=== PATIENT | female | born 1990 | race Caucasian/White ===

== ENCOUNTER 2017-05-21 21:01 | Inpatient (IN) ==
[~2017-05-21 21:01] MED LIST: ROPIVACAINE 0.2% 2MG/ML INJ 40 MG, SUFentanil 50 MCG in NS 100 ML INFIL ONE
--- OUTSIDE RECORDS SUMMARY | 2017-05-21 21:05 | External Medical Summary | Referral Summary ---
:1990 Author Organization [facility] [address] [place] [address] Care Team Providers Name Role Phone Kat Hernadez Primary Care Physician Encounter VC Date(s): 06/14/16 - 06/14/16 [facility] [address] [place] [address] [place] Discharge Diagnosis: Skin abscess Discharge Diagnosis: Skin abscess Discharge Disposition: 01-Home or Self Care Attending Physician: Yunier Klein MD Admitting Physician: Yunier Klein MD Vital Signs Most recent to oldest [Reference Range]: 1 Peripheral Pulse Rate [60-100 bpm] 109 bpm *HI* (06/14/16 1:59 PM) Respiratory Rate [14-20 br/min] 18 br/min (06/14/16 1:59 PM) Blood Pressure [90-140/60-90 mmHg] 124/64 mmHg (06/14/16 1:59 PM) SpO2 98 % (06/14/16 1:59 PM) Problem List Condition Effective Dates Status Health Status Informant Obesity(Confirmed) Active patient Allergies, Adverse Reactions, Alerts No Known Allergies Medications doxycycline hyclate 100 mg oral capsule 100 mg 1 caps, Oral, BID, # 20 caps, 0 Refill(s), Pharmacy: [id number], 1 caps Oral BID Start Date: 06/14/16 Stop Date: 06/23/16 Status: Orderedmupirocin 2% nasal ointment 1 vidal, Nasal, BID, in each nostril, X 5 days, # 1 g, 0 Refill(s), Pharmacy: [id number] Start Date: 06/14/16 Stop Date: 06/19/16 Status: Ordered Results No data available for this section Immunizations No data available for this section Procedures Procedure Date Related Diagnosis Body Site Incision and drainage of abscess (eg, carbuncle, 06/14/16 suppurative hidradenitis, cutaneous or subcutaneous abscess, cyst, furuncle, or paronychia); simple or single Social History Social History Type Response Smoking Status Never smoker Assessment and Plan Extracted from: Title: Acute OV-Abscess Author: Yunier Klein MD Date: 06/14/16 Impression and Plan Diagnosis Skin abscess ([id number] L02.91, Discharge, Medical). Orders Orders (Selected) Prescriptions Prescribed doxycycline hyclate 100 mg oral capsule: 100 mg=1 caps, Oral, BID, 20 caps, 0 Refill(s) mupirocin 2% nasal ointment: 1 vidal, Nasal, BID, for 5 days, in each nostril, 1 g, 0 Refill(s).
--- OUTSIDE RECORDS SUMMARY | 2017-05-21 21:05 | External Medical Summary ---
:1989 Author Organization [employer] Care Team Providers Name Role Phone Jazlyn Soto Provider Role Unavailable Allergies No Known Allergies Problems Problem Type Condition Code Onset Dates Condition Status Assessment Major depressive disorder, F33.1 Active recurrent, moderate Assessment Adjustment disorder with anxiety F43.22 Active Problem Esophageal reflux 530.81 Active Medications Medication Code Code Instructions Start End Date Status Dosage System Date Citalopram [facility] 76210-34 20 MG Orally June 12, tablet Hydrobromide 41-01 Once a day 2015 Ibuprofen NDC 75652-82 200 MG Orally 1 tablet 74-71 every 6 hrs as needed Results No Known Results Summary Purpose [facility] [facility] [employer] Submission
--- OUTSIDE RECORDS SUMMARY | 2017-05-21 21:05 | External Medical Summary | Continuity of Care Document ---
:1989 Author Organization [facility] Address [address] [place] [id number] Phone Allergies, Adverse Reactions, Alerts Substance Reaction Severity Status No Known Drug Allergies Unknown Active Medications Medication Instructions Dosage Effective Dates Status Comments (start - stop) VITAMINS take 1 tablet by - Active (unknown strength) oral route every day levothyroxine 75 mcg take 1 tablet by 75 MCG - Active called to WM tablet oral route every Problems Condition Effective Dates (start - stop) Clinical Status Endo, nutritional and metab diseases - comp preg, third tri Encntr for suprvsn of normal first - preg, third trimester 28 weeks gestation of - Encntr for suprvsn of normal first - preg, first trimester Less than 8 weeks gestation of - Oth related conditions, - third trimester Encntr for suprvsn of normal first - preg, third trimester 30 weeks gestation of - Endo, nutritional and metab diseases - comp preg, second tri Encntr for suprvsn of normal first - preg, second trimester 25 weeks gestation of - Encntr for suprvsn of normal first - preg, first trimester 11 weeks gestation of - Encntr for suprvsn of normal first - preg, second trimester 19 weeks gestation of - Encntr for suprvsn of normal first - preg, second trimester 19 weeks gestation of - Encntr for suprvsn of normal first - preg, second trimester 15 weeks gestation of - Encntr for suprvsn of normal first - preg, second trimester 23 weeks gestation of - Encntr for suprvsn of normal , unsp, unsp trimester Irregular Bleeding Active Procedures Procedure Date OB Visit No Charge Results Test Name Date and Time Measure Units Reference Range Abnormal Flag Comments Unknown Advance Directives Directive Yes / No Effective Date File Name Unknown Encounters Encounter Practice Location Reason(s) Diagnoses Date Provider Care Description For Visit Team Members aBrbra Hall Oth Mar- Lc In [facility] related [facility], conditions, [address], third [place], [facility] Center , for suprvsn of Anupam Villalpando normal first 120, tel:[phone] preg, third [place], [address] [email or web address] [place], weeks gestation [id number] of , [place]. tel: [phone] Barbra Rivera, Lazarus-0 Lc In Womens nutritional and [facility], metab diseases 8 [address], comp preg, third [place], triEncntr for Center , suprvsn of Anupam Villalpando normal first 120, tel:[phone] preg, third [place], [address] [email or web address] [place], weeks gestation [id number] of , [place]. tel: [phone] Barbra Rivera, Jan- Lc In Women nutritional and [facility], metab diseases 7 [address], comp preg, [place], second triEncntr Center , for suprvsn of Anupam Villalpando normal first 120, tel:[phone] preg, second [place], [address] [email or web address] [place], weeks gestation [id number] of , [place]. tel: [phone] Barbra Hall Encntr for Dec-0 Lc In Womens suprvsn of 201 [facility], normal first 7 700 [address], preg, second Medical [place], [id number] Center [id number], weeks gestation Anupam Villalpando [place] of 120, tel:+[phone] [place], [address] [place], [id number] , [place]. tel: [phone] [facility] En[facility] for Nov-0 Lc In Womens suprvsn of 6-201 [facility], normal first 7 700 [address], preg, [place], [id number] Center [id number], weeks gestation Anupam Villalpando [place] of 120, tel:+[phone] [place], [address] [place], [id number] , [place]. tel: [phone] [facility] Encntr for Nov-0 Lc In Womens Ultrasound suprvsn of 6-201 [facility], normal first 7 700 [address], preg, [place], Center [id number], weeks gestation Anupam Villalpando [place] of 120, tel:[phone] [place], [address] [place], [id number] , [place]. tel: [phone] [facility] Encntr for Oct-0 Lc In Womens suprvsn of 9-201 [facility], normal first 7 700 [address], preg, [place], [id number] Center [id number], weeks gestation Anupam Villalpando [place] of 120, tel:+[phone] [place], [address] [place], [id number] , [place]. tel: [phone] [facility] Encntr for Sep-1 Lc In Womens suprvsn of 1-201 [facility], normal first 7 700 [address], preg, [place], [place], Center [id number], weeks gestation Anupam Villalpando [place] of 120, tel:[phone] [place], [address] [place], [id number] , [place]. tel: [phone] [facility] Encntr for Aug-1 Lc In Womens suprvsn of 4-201 [facility], normal first 7 700 [address], preg, [place], [place], trimesterLess Center [id number], than 8 weeks Anupam Villalpando [place] gestation of 120, tel:+[phone] Rafael [address], [id number] , [place]. tel: [phone] Barbra Hall Aug-0 Lc In Womens 2-201 [facility], 7 700 [address], [place], Center [id number], , [facility] 120, tel:+[phone], [id number] , [place]. tel: [phone] Barbra Hall Encntr for Aug-0 Lc In Womens suprvsn of 1-201 [facility], normal 7 700 [address], , unsp, [place], unsp trimester Center [id number], , [facility] 120, tel:+[phone], [id number] , [place]. tel: [phone] Barbra Hall Aug-0 Lc In Womens 1-201 [facility], 7 700 [address], [place], [place] [id number], , [facility] 120, tel:+[phone], [id number] , [place]. tel: [phone] Family History Family Member Diagnosis Age At Onset No family history of Hypertension No family history of Venous Thrombosis No family history of Breast Cancer No family history of Thyroid Disorder No family history of Ovarian Cancer No family history of Epilepsy No family history of Osteoporosis No family history of Kidney Disease No family history of Colon Cancer No family history of Pulmonary Embolism No family history of Cardiovascular Disease Mother Diabetes No family history of Lung Disease No family history of Stroke No family history of Uterine Cancer Immunizations Vaccine Date Status Comments Unknown Payers Payer name Insurance type Covered constitution party ID Authorization(s) [employer] [place] [employer] - Medicaid [place] [id number] Social History Type Description Quantity Date Captured Alcohol Use Details No Caffeine Use Details No Tobacco Use Status Never smoked tobacco Smoking Status Never smoker Vital Signs Date / Height Weight BMI Pulse Blood Temperature Respiratory Body Head BMI Time: Rate Pressure Rate Surface Circumference percentile Area Unknown Chief Complaint And Reason For Visit Unknown Chief Complaint And Reason For Visit Reason For Referral Reason For Referral Unknown Plan Of Care Date Type Action Status Goal Lifestyle education regarding completed diet Appointment Stephanie Valentine BOOKED Appointment Stephanie Valentine BOOKED Appointment Stephanie Valentine BOOKED Future Order: Radiology Order Complete OB Ultrasound > 14 Ordered Weeks ([id number]) Date Type Problem Goal Intervention Status Start Date Unknown. History Of Present Illness Encounter Date Complaint History Of Present Illness This patient has no known history of present illness Functional Status Encounter Date Functional Assessment Cognitive Assessment Unknown Medications Administered Medication Instructions Dosage Effective Dates (start - stop) Status Comments Drug Treatment Unknown Instructions Date Instruction Additional Information HIV and other routine tests risk factors identified by history anticipated course of care nutrition and weight gain counseling, special diet toxoplasmosis precautions (cats / raw meat) sexual activity exercise indications for ultrasound influenza vaccine environmental / work hazards travel use of any medications (including supplements, vitamins, herbs, OTC drugs) domestic violence seat belt use childbirth classes / hospital facilities hospital registration genetic testing Zika virus assessment & precautions new ob handbook [facility] Docs Giving encouragement to exercise Related to Body mass index 31.0-31.9 Lifestyle education regarding diet Related to Body mass index 31.0-31.9
--- OUTSIDE RECORDS SUMMARY | 2017-05-21 21:05 | External Medical Summary ---
:1990 Author Organization eClinicalWorks Care Team Providers Name Role Phone Elsy Kenny Provider Role Unavailable Allergies, Adverse Reactions, Alerts Substance Reaction Event Type N.K.D.A. Info Not Available Non Drug Allergy Problems Problem Type Condition Code Onset Dates Condition Status Assessment Major depressive disorder, F33.0 Active recurrent, mild Assessment Dysmenorrhea, unspecified N94.6 Active Problem Esophageal reflux 530.81 Active Medications Medication Code Code Instructions Start End Date Status Dosage System Date Ibuprofen NDC 66078-18 200 MG Orally 1 tablet 74-71 every 6 hrs as needed Citalopram NDC 80763-13 20 MG Orally June 12, 1 tablet Hydrobromide 41-01 Once a day 2015 Procedures Procedure Coding System Code Date OFFICE VISIT, EST-LOW COMPLEXITY (15 MIN.) CPT-4 68086 June 13, 2015 Vital Signs Date/Time: June 13, 2015 Cardiac Monitoring Heart Rate 70 /min Height 60 in Weight 192.12 lbs Temperature 99.1 F Respiratory Rate 16 /min Blood Pressure Diastolic 77 mm Hg Blood Pressure Systolic 140 mm Hg Results No Known Results Summary Purpose eClinicalWorks Submission
--- OUTSIDE RECORDS SUMMARY | 2017-05-21 21:05 | External Medical Summary ---
:1989 Author Organization [facility] Care Team Providers Name Role Phone Kat Hernadez Provider Role Unavailable Allergies No Known Allergies Problems Problem Type Condition Code Onset Dates Condition Status Problem Esophageal reflux 530.81 Active Medications No Known Medications Results No Known Results Summary Purpose [facility] Submission
--- OUTSIDE RECORDS SUMMARY | 2017-05-21 21:05 | External Medical Summary ---
:1989 Author Organization eClinicalWorks Care Team Providers Name Role Jazlyn Nowak Provider Role Unavailable Allergies No Known Allergies Problems Problem Type Condition Code Onset Dates Condition Status Assessment Major depressive disorder, F33.1 Active recurrent, moderate Assessment Encounter for consultation Z71.9 Active Problem Esophageal reflux 530.81 Active Medications Medication Code Code Instructions Start End Status Dosage System Date Date Selenium [facility] 45489-01 1 % Externally Oct 23 application Sulfide 95-53 2016 to affected area Results No Known Results Summary Purpose eClinicalWorks Submission
--- OUTSIDE RECORDS SUMMARY | 2017-05-21 21:05 | External Medical Summary | Continuity of Care Document ---
:1989 Author Organization [facility] Address [address] [place], [place] [id number] Phone Allergies, Adverse Reactions, Alerts Substance Reaction [...] Effective Dates (start - stop) Clinical Status Encntr for suprvsn of normal first - preg, second trimester 19 weeks gestation of - Encntr for suprvsn of normal first - preg, first trimester Less than 8 weeks gestation of - Encntr for suprvsn [...] trimester Irregular Bleeding Active Procedures Procedure Date Ultrasound exam of preg uterus, complete Results Test Name Date and Time Measure Units Reference Range Abnormal Flag Comments Unknown Advance Directives Directive Yes / No Effective Date File Name Unknown Encounters Encounter Practice Location Reason(s) Diagnoses Date Provider Care Description For Visit Team Members [facility] Encntr for Nov- Lc In [employer] suprvsn of 6-201 Carol. [facility], normal first 7 [address], preg, second Medical [place], [place], [id number] Center [id number], weeks gestation Anupam Villalpando [place] of 120, tel:+[phone] [place], [address] [place], [id number] , [place]. tel: [phone] [facility] Encntr for Nov-0 Lc In Womens Ultrasound suprvsn of 6-201 [facility], normal first 7 700 [address], preg, [place], [place], [id number] Center [id number], weeks gestation Anupam Villalpando US of 120, tel:+[phone] [place], [address] [place], [id number] , [place]. tel: [phone] [facility] Encntr for Oct-0 Lc In Womens suprvsn of 9-201 [facility], normal first 7 700 [address], preg, [place], [place], [email or web address] Center [id number], weeks gestation Anupam Villalpando US of 120, tel:+[phone] [place] [address], [id number] , [place]. tel: [phone] [facility] Encntr for Sep-1 Lc In Womens suprvsn of 1-201 [facility], normal first 7 700 [address], preg, [place], [place], [id number] Center [id number], weeks gestation Anupam Villalpando US of 120, tel:+[phone] [place] [address] [place], [id number] , [place]. tel: [phone] [facility] Encntr for Aug-1 Lc In Womens suprvsn of 4-201 [facility], normal first 7 700 [address], preg, [place], [place], trimesterLess Center [id number], than 8 weeks Anupam Villalpando [place] gestation of 120, tel:+[phone] [place] [address] [place], [id number] , [place]. tel: [phone] [facility] Aug-0 Lc In Womens 2-201 [facility], 7 700 [address], [place], [place], [place] [id number], Anupam Villalpando [place] 120, tel:+[phone] [place] [address] [place], [id number] , [place]. tel: [phone] Barbra Hall Encntr for Oct-0 Lc In Womens suprvsn of [facility], normal 7 700 [address], , Medical [place], [place], unsp, unsp Center [id number], trimester Dr [facility] 120, tel:+[phone] [place] [address] [place], [id number] , [place]. tel: [phone] Barbra Hall Oct-0 Lc In Womens [facility], 7 700 [address], [place], [place], Center [id number], Dr [facility] 120, tel:+[phone] [place] [address] [place], [id number] , [place]. tel: [phone] Family History Family Member Diagnosis Age At [...] Unknown Payers Payer name Insurance type Covered democrat ID Authorization(s) [employer] [place] [employer] - Medicaid [place] [id number] Social History Type Description Quantity Date Captured Unknown Vital Signs Date / Height Weight BMI Pulse Blood Temperature Respiratory Body Head BMI Time: Rate Pressure Rate Surface Circumference percentile Area Unknown Chief Complaint And Reason For Visit Unknown Chief Complaint And Reason For Visit Reason For Referral Reason For Referral Unknown Plan Of Care Date Type Action Status Goal Lifestyle education regarding completed diet Appointment Stephanie Valentine BOOKED Future Order: Radiology Order Complete OB Ultrasound > 14 Ordered Weeks ([id number]) Date Type Problem Goal Intervention Status Start [...]
--- OUTSIDE RECORDS SUMMARY | 2017-05-21 21:06 | External Medical Summary ---
:1990 Author Organization eClinicalWorks Care Team Providers Name Role Phone Fiona Worthington Provider Role Unavailable Allergies No Known Allergies Problems Problem Type Condition ICD-9 Code Onset Dates Condition Status Problem Abnormal EKG 794.31 Active Problem PVC's (premature ventricular 427.69 Active contractions) Medications No Known Medications Results No Known Results Summary Purpose eClinicalWorks Submission
--- OUTSIDE RECORDS SUMMARY | 2017-05-21 21:06 | External Medical Summary | Continuity of Care Document ---
:1990 Author Organization [facility] Address [address] [place], [place] [id number] Phone Allergies, Adverse Reactions, Alerts Substance Reaction [...] Visit Team Members [facility] Encntr for Jan- Lc In [facility] suprvsn of 6-201 Carol. [facility], normal first 7 700 [address], preg, second Medical [place], [place], [id number] Center [id number], weeks gestation Anupam Villalpando [place] of 120, tel:+[phone] Rafael, [address] [place], [id number] , [place]. tel: [phone] [facility] Encntr for Nov-0 Lc In Womens Ultrasound suprvsn of 6-201 [facility], normal first 7 700 [address], preg, [place], [place], ailumlgqy74 Center [id number], weeks gestation Anupam Villalpando US of 120, tel:+[phone] Rafael, [address] [place], [id number] , [place]. tel: [phone] [facility] Encntr for Oct-0 Lc In Womens suprvsn of 9-201 [facility], normal first 7 700 [address], preg, [place], [place], [id number] Center [id number], weeks gestation Anupam Villalpando US of 120, tel:+[phone] Rafael, [address] [place], [id number] , [place]. tel: [phone] [facility] Encntr for Sep-1 Lc In Womens suprvsn of 1-201 [facility], normal first 7 700 [address], preg, [place], [place], uqvbsqllx38 Center [id number], weeks gestation Anupam Villalpando US of 120, tel:+15636 [place], [address] [place], [id number] , [place]. tel: [phone] [facility] Encntr for Aug-1 Lc In Womens suprvsn of 4-201 [facility], normal first 7 700 [address], preg, [place], [place], trimesterLess Center [id number], than 8 weeks Anupam Villalpando [place] gestation of 120, tel:+[phone] Rafael, [address] [place], [id number] , [place]. tel: [phone] [facility] Aug-0 Lc In Womens 2-201 [facility], 7 700 [address], [place], [place], [place] [id number], Anupam Villalpando [place] 120, tel:+[phone] Rafael [address], [id number] , [place]. tel: [phone] Barbra Hall Encntr for Oct- Lc In Womens suprvsn of [facility], normal 7 700 [address], , Medical [place], [place], unsp, unsp Center [id number], trimester , [facility] 120, tel:+[phone] Rafael, [address] [place], [id number] , [place]. tel: [phone] Barbra Hall Oct-0 Lc In Womens [facility], 7 700 [address], [place], [place], Center [id number], , [facility] 120, tel:+[phone] Rafael [address] [place], [id number] , [place]. tel: [phone] Family History Family Member Diagnosis Age At [...] Authorization(s) [employer] - Medicaid [place] [id number] Social History Type Description Quantity Date Captured Alcohol Use Details No Caffeine Use Details Unknown Tobacco Use Status Unknown Smoking Status Never smoker Vital Signs Date / Height Weight BMI Pulse Blood Temperature Respiratory Body Head BMI Time: Rate Pressure Rate Surface Circumference percentile Area 179.50 33.9 lbs 1 mm[Hg] 1:20 kg/m PM eter (2) Chief Complaint And Reason For Visit Unknown Chief Complaint And Reason For Visit Reason For Referral Reason For Referral Unknown Plan Of Care Date Type Action Status Goal Lifestyle education regarding completed diet Appointment Stephanie Valentine BOOKED Future Order: Radiology Order Complete OB Ultrasound > 14 Ordered Weeks ([id number]) Date Type Problem Goal Intervention Status Start [...]
--- OUTSIDE RECORDS SUMMARY | 2017-05-21 21:06 | External Medical Summary ---
:1990 Author Organization eClinicalWorks Care Team Providers Name Role Phone Kat Hernadez Provider Role Unavailable Allergies, Adverse Reactions, Alerts Substance Reaction Event Type N.K.D.A. Info Not Available Non Drug Allergy Problems Problem Type Condition Code Onset Dates Condition Status Assessment Tinea versicolor B36.0 Active Assessment Cough R05 Active Problem Esophageal reflux 530.81 Active Medications Medication Code Code Instructions Start End Status Dosage System Date Date Selenium [facility] 10898-68 1 % Externally Oct 23 application Sulfide 95-53 2015 to affected area Procedures Procedure Coding System Code Date OFFICE VISIT, EST-LOW COMPLEXITY (15 MIN.) CPT-4 38436 Oct 24, 2015 Vital Signs Date/Time: Oct 24, 2015 Temperature 99.7 F Height 60 in Weight 195.8 lbs Blood Pressure Diastolic 60 mm Hg Blood Pressure Systolic 112 mm Hg Cardiac Monitoring Heart Rate 63 /min BMI 38.24 Index Oximetry 98 % Results No Known Results Summary Purpose eClinicalWorks Submission
[2017-05-21] MEDS ORDERED: MAG-AL + SIM ORAL LIQUID 30ml PO PRN (21:33)
[2017-05-21] MEDS ORDERED: LIDOCAINE 1% (10mg/ml) 2mL INJ PF SDV ID PRN (21:33)
[2017-05-21] MEDS ORDERED: ACETAMINOPHEN 500 MG TABLET PO PRN (21:33)
[2017-05-21] MEDS ORDERED: CALCIUM CARBONATE Chewable 500mg TABLET PO PRN (21:33)
[2017-05-21] MEDS ORDERED: CARBOPROST 250 MCG/ML INJECTION IM PRN (21:33)
[2017-05-21] MEDS ORDERED: METHYLERGONOVINE 0.2 MG/ML INJECTION IM PRN (21:33)
[2017-05-21] MEDS: LR 1,000 ML IV PRN (22:00)
[2017-05-21 22:23] VITALS: BMI 39.8
[2017-05-22] MEDS ORDERED: NALBUPHINE 10 MG/ML INJECTION IVP PRN (03:16)
[2017-05-22] MEDS ORDERED: ONDANSETRON 4 MG/2 ML INJECTION IVP PRN (07:20)
[2017-05-22] MEDS ORDERED: DiphenhydrAMINE 50 MG/ML INJECTION IVP PRN (07:20)
[2017-05-22] MEDS ORDERED: NALOXONE 0.4 MG/ML INJECTION IVP PRN (07:20)
[2017-05-22] MEDS ORDERED: ROPIVACAINE 1% 10MG/ML INJ 200 MG, SUFentanil 50 MCG in NS 100 ML EPI PRN (07:20)
--- NOTE | 2017-05-22 07:20 | Anesthesia Preoperative Report ---
Anesthesia Epidural/Spinal Rec - Date and Time Date: 05/22/17 Procedure: Labor Epidural Plan: Epidural - Vital Signs /Para: P:0 - Medictaions & Allergies Inpatient Medications: Current Medications Acetaminophen (Tylenol) 500 - 1,000 mg PO Q4H PRN PRN Reason: Pain Al Hydroxide/Mg Hydroxide (Maalox Plus) 30 ml PO Q3H PRN PRN Reason: Indigestion Calcium Carbonate (Tums) 500 - 1,000 mg PO Q2H PRN PRN Reason: Indigestion Carboprost Tromethamine (Hemabate) 250 mcg IM O PRN PRN Reason: .Downtime Lactated Ringer's (Lactated Ringers) 1,000 mls @ 999 mls/hr IV .Q1H1M PRN Last Admin: 05/21/17 22:00 Dose: 125 mls/hr Lidocaine HCl (Xylocaine-Mpf 1% Vial) 0.2 mg ID O PRN PRN Reason: IV Start Methylergonovine Maleate (Methergine) 0.2 mg IM O PRN Misoprostol (Cytotec) 800 mcg IA ONCE PRN Nalbuphine HCl (Nubain) 5 - 10 mg IVP Q1H PRN Last Admin: 05/22/17 03:34 Dose: 5 mg Allergies/Adverse Reactions: Allergies Allergy/AdvReac Type Severity Reaction Status Date / Time No Known Allergies Allergy Unverified 12/20/15 23:11 - Home Medications Home Medications: Home Medications Medication Instructions Recorded Confirmed Type NO ROUTINE MEDS #0 12/20/15 History Levothyroxine Tab 1 tab DAILY 05/19/17 05/21/17 History Vitamins 1 tab DAILY 05/19/17 05/21/17 History Triamcinolone 0.1% Cream 15 G 1 applicatio TOP BID 05/21/17 05/21/17 History [Kenalog] - Medical History Cardiovascular: Reports: Other (PVCs- asymptomatic) DENIES: Angina Gastrointestional: Reports: Gastroesophageal Reflux Disease Renal/Endocrine: Reports: Thyroid Disease (takes levothyroxine) Other History: Reports: Now DENIES: Anesthesia Reactions - Surgical History Anesthesia Reactions: None Hx Family Anesthesia Reaction: No History of Motion Sickness: No - Social History Smoking Status: Never smoker Substance Use Type: does not use - Pertinent Findings Lab Data: CBC and BMP 05/21/17 21:49 - Physical Exam Respiratory Exam: lungs clear, bilateral breath sounds equal Cardiovascular Exam: regular rate and rhythm - Airway Assessment Mallampati Score: II TMD: 3 Fingerbreadths Neck Extension: good Overall Assessment: may be difficult mask vent, may be difficult intubation - ASA ASA Score: 2 - Discussion Discussion: Discussed risks/options/alternatives of anesthesia and questions answered. Patient consents. Nursing pain assessment noted. Anesthesia Discussion: spouse Attestation Statement: Prior to the delivery of any anesthetic medication, I examined the patient, developed the plan, obtained the patient's consent and discussed the risk and benefits of the procedure with the patient/guardian.
[2017-05-22] MEDS ORDERED: OXYTOCIN DRIP 30 UNIT/500 ML ML IV PRN (08:00)
[2017-05-22] MEDS ORDERED: D5LR 1,000 ML IV PRN (08:00)
[2017-05-22] MEDS: LR 1,000 ML IV PRN (12:39)
[2017-05-22] MEDS ORDERED: CEFAZOLIN PREMIX (MC ONLY) 2 GM/50 ML BAG IV SCH (13:00)
[2017-05-22] MEDS ORDERED: LIDOCAINE 2%/EPI 1:200,000 20ml SDV PF ONE (14:48)
[2017-05-22] MEDS ORDERED: MORPHINE SULFATE PF 5mg/10ml INJ (Duramorph) ONE (14:49)
[2017-05-22] MEDS ORDERED: CITRIC ACID/SODIUM CITRATE 30ml PO ONE (14:59)
[2017-05-22] MEDS ORDERED: FAMOTIDINE PB 20 MG/50 ML BAG IV ONE (14:59)
[2017-05-22] MEDS ORDERED: TRANEXAMIC ACID 1,000 MG/10 ML VIAL IV ONE (15:01)
[2017-05-22] MEDS ORDERED: FentaNYL 250 MCG/5 ML INJECTION ONE (15:28)
[2017-05-22] MEDS ORDERED: MIDAZOLAM 2mg/2ml INJECTION ONE (15:44)
[2017-05-22] MEDS ORDERED: KETAMINE 500 MG/10 ML INJECTION ONE (15:45)
[2017-05-22] MEDS ORDERED: PHENYLEPHRINE INJ 10 MG/ML VIAL IV ONE (15:53)
[2017-05-22] MEDS ORDERED: SALINE FLUSH 10ml SYRINGE ONE (15:53)
[2017-05-22] MEDS ORDERED: HYDROCORTISONE 2.5% CREAM 30gm RECTALLY PRN (16:35)
[2017-05-22] MEDS ORDERED: METOCLOPRAMIDE 10mg/2ml INJECTION IVP PRN (16:35)
[2017-05-22] MEDS ORDERED: OXYTOCIN DRIP 30 UNIT/500 ML ML IV SCH (16:35)
[2017-05-22] MEDS ORDERED: ACETAMINOPHEN 500 MG TABLET PO PRN (16:35)
[2017-05-22] MEDS ORDERED: CALCIUM CARBONATE Chewable 500mg TABLET PO PRN (16:35)
[2017-05-22] MEDS ORDERED: SIMETHICONE 80 MG CHEWABLE TABLET PO PRN (16:35)
[2017-05-22] MEDS ORDERED: DiphenhydrAMINE 25 MG CAPSULE PO PRN (16:35)
[2017-05-22] MEDS: D5LR 1,000 ML IV SCH (16:39)
[2017-05-22] MEDS ORDERED: ACETAMINOPHEN IV 1,000 MG/100 ML VIAL IV ONE (16:51)
[2017-05-22] MEDS: SIMETHICONE 80 MG CHEWABLE TABLET PO SCH (19:41)
[2017-05-22] MEDS: IBUPROFEN 800 MG TABLET PO PRN (20:04)
[2017-05-22] MEDS: CEFAZOLIN PREMIX (MC ONLY) 2 GM/50 ML BAG IV SCH (20:05)
--- NOTE | 2017-05-22 20:31 | Anesthesia Postoperative Note ---
- Date and Time Date: 05/22/17 Time: 20:25 - Status Patient Participated in Evaluation: Patient Participated in Person Respiratory Function: Airway Patent, Regular Respirations Cardiovascular Function: Regular Pulse Mental Status: Alert and Oriented Pain Intensity: 4 Hydration: Taking PO Fluids Complications During Recover: None Apparent Post Anesthesia Care Notes: moves lower extremeties - Follow-Up Instructions Instructions: Per Surgeon
--- NOTE | 2017-05-22 21:54 | Operative Note ---
DATE OF SURGERY 05/22/2017 PREOPERATIVE DIAGNOSES 1. Term . 2. Prolonged premature rupture of membranes. 3. Arrest of dilatation. 4. Prolonged tachycardia. 5. Chorioamnionitis. POSTOPERATIVE DIAGNOSES 1. Term - delivered. 2. Prolonged premature rupture of membranes. 3. Arrest of dilatation. 4. Prolonged tachycardia. 5. Chorioamnionitis. PROCEDURE Primary low transverse section. SURGEON Carol Platt MD [employer] INST[employer]ER Gurvinder Be, Coil Winding Supervisor ANESTHESIA Continuous epidural. STONE OPERATOR Derek Angeles CRNA EBL one 1200 ml 1200 mL. DESCRIPTION OF PROCEDURE Ms. Vlaentine was brought to the OR and placed on the OR table in supine position with left lateral displacement. Her epidural analgesia was brought up to adequate surgical levels. The abdomen was prepped and draped in the usual sterile fashion. A Pfannenstiel skin incision was made with a sharp knife. This was carried down to fascia. Fascia was incised transversely. Fascia was tented up, then bluntly and sharply dissected free of rectus muscles. Rectus muscles were bluntly divided. The peritoneum was tented up and sharply entered. The bladder blade was inserted. The bladder was noted to be well below our area of operation. A low transverse uterine incision was made with a sharp knife. There was thin meconium-stained fluid. Baby was delivered in the vertex OP presentation. There was a loose shoulder cord x 1 that was delivered through. Baby was bulb suctioned as soon as the head was delivered and then further bulb suctioned after delivery in total. The cord was doubly clamped and cut and the baby is given to Dr. Castorena and her team for care. This is a liveborn female with Apgars of 8/9. She weighed 6 pounds, 9 ounces. The placenta was then manually removed intact. It had a normal configuration and normal-appearing three-vessel cord. It was subsequently cultured and sent to Pathology for evaluation. The uterus was exteriorized and we swept the cavity clear of membranes. The myometrial incision was then reapproximated with a running locking 0-Monocryl. There had been extensions on the right and the left , neither of them very far but both required reenforcing with [id number] extra suture of 0-Monocryl for hemostasis. We inspected very carefully for hemostasis - this was under good control. Uterus, tubes and ovaries were noted to be grossly normal and were returned to the abdominal cavity. We then inspected again for hemostasis. There was some question about whether it was remaining under control on the left so we again exteriorized the uterus. Visibility was fairly difficult because of mother's body habitus but after exteriorization we determined that hemostasis really was under good control. We returned the uterus to the abdominal cavity and continued our closure. Peritoneum was reapproximated with a running nonlocking 2-0 Vicryl. Fascia was then reapproximated with a running nonlocking 0-PDS double suture. We irrigated copiously with sterile normal saline. Skin edges were reapproximated with a subcuticular style 3-0 undyed Vicryl. Then the wound was dressed with Dermabond glue and a Prevena dressing. Total blood loss was approximately 1200 mL. At the time of this dictation mother and baby are doing well. [facility]
[2017-05-23] MEDS: SIMETHICONE 80 MG CHEWABLE TABLET PO SCH ×4 (02:28→21:36)
[2017-05-23] MEDS: CEFAZOLIN PREMIX (MC ONLY) 2 GM/50 ML BAG IV SCH ×3 (03:15→16:28)
[2017-05-23] MEDS: HYDROCODONE/APAP 5mg/325mg TABLET PO PRN ×4 (08:33→21:36)
[2017-05-23] MEDS: IBUPROFEN 800 MG TABLET PO PRN ×2 (08:34→16:27)
--- NOTE | 2017-05-23 10:36 | OB/GYN Progress Note ---
OB-PP Progress Note - General PPD1 Maternal Group B Strep: Negative Maternal blood type: O+ Maternal Rubella Status: Immune - Subjective Date: 05/23/17 Lochia: Minimal Pain: controlled Nausea or Vomiting Present: No - Objective Vital Signs: Last Vital Signs Temp 98.2 F 05/23/17 08:00 Pulse 77 05/23/17 08:00 Resp 16 05/23/17 08:00 BP 105/62 05/23/17 08:00 Pulse Ox 100 05/23/17 08:00 Urine Output: good General: alert and oriented Edema: none Laboratory: Laboratory Results - last 24 hr 05/23/17 07:38 WBC 13.1 H RBC 3.82 L Hgb 11.1 L D Hct 34.5 L D MCV 90.3 MCH 29.1 MCHC 32.2 RDW Std Deviation 47.0 Plt Count 112 L MPV 13.3 H - Assessment Assessment: SP, Primary C/S - Plan Plan: routine care Expected date of discharge: 05/24/17
[2017-05-23] MEDS: D5LR 1,000 ML IV SCH (10:47)
[2017-05-23] MEDS: DOCUSATE CALCIUM 240 MG CAPSULE PO SCH (11:06)
[2017-05-24] MEDS: HYDROCODONE/APAP 5mg/325mg TABLET PO PRN ×4 (02:09→17:11)
[2017-05-24] MEDS: IBUPROFEN 800 MG TABLET PO PRN ×2 (02:09→17:11)
[2017-05-24] MEDS ORDERED: LEVOTHYROXINE 75 MCG TABLET PO SCH (06:30)
[2017-05-24] MEDS: SIMETHICONE 80 MG CHEWABLE TABLET PO SCH ×3 (11:28→17:12)
[2017-05-24 14:25] VITALS: RESP 16
[2017-05-24 16:25] VITALS: BP 135/72; PULSE 86; TEMP 98; O2SAT 98
[2017-05-24] MEDS: DOCUSATE CALCIUM 240 MG CAPSULE PO SCH (17:11)
== END 2017-05-24 17:42 | disposition home or self-care (01) | DRG 765 ==
LOC: OBOBS 21:01 → MC 21:02
PROVIDERS: ADMIT Obstetrics & Gynecology; ATTEND Obstetrics & Gynecology